=== PATIENT | male | born 1995 | race African-American/Black ===

== ENCOUNTER 2019-05-11 17:04 | Emergency (ER) | payer MEDICAID ==
[~2019-05-11] VITALS: Ht 182.9 cm; Wt 100.0 kg
[2019-05-11 19:36] VITALS: BP 120/69
[2019-05-11] MEDS ORDERED: LIDOCAINE HCL/PF 1% 10 MG/ML 5ML VIAL IJ ONE (19:45)
== END 2019-05-11 19:36 | disposition home or self-care (01) ==
LOC: ER 17:04
DX: R20.0 Anesthesia of skin (principal); R20.2 Paresthesia of skin
CPT/HCPCS: 99281